=== PATIENT | male | born 1985 | race Caucasian/White ===

== ENCOUNTER 2018-04-23 08:20 | Emergency (ER) | payer OTHER ==
[2018-04-23] MEDS ORDERED: Ibuprofen 800 MG TAB ONE (08:55)
[2018-04-23] MEDS ORDERED: Ondansetron ODT 4 MG TAB ONE (08:55)
== END 2018-04-23 09:33 | disposition home or self-care (01) ==
LOC: SCSER 08:20
DX: J01.90 Acute sinusitis, unspecified (principal); J45.909 Unspecified asthma, uncomplicated; F41.9 Anxiety disorder, unspecified; Z79.899 Other long term (current) drug therapy
CPT/HCPCS: 99283; Q0162

== ENCOUNTER 2020-11-26 15:35 | Outpatient (CLI) | payer OTHER ==
--- NOTE | 2020-11-26 16:23 | RAD ---
THORACIC SPINE THREE VIEWS: 11/26/20 HISTORY: Back pain. FINDINGS/IMPRESSION: No acute fracture or subluxation is identified. POS: [facility]
--- NOTE | 2020-11-26 16:34 | RAD ---
EXAM: CERVICAL SPINE THREE VIEWS: 11/26/20 HISTORY: Neck pain. FINDINGS: No evidence for acute fracture or dislocation involving the visualized C-spine. The upper aspect of C 1 and the odontoid tip are obscured. No prevertebral soft tissue swelling. IMPRESSION: No acute fracture or dislocation involving the visualized C-spine. POS: RRE
== END 2020-11-26 15:36 | disposition home or self-care (01) ==
LOC: SCSRAD 15:35
PROVIDERS: ATTEND Family Medicine
DX: M54.2 Cervicalgia (principal)
CPT/HCPCS: 72040; 72072